=== PATIENT | female | born 1975 | race Hispanic/Latino ===

== ENCOUNTER 2025-01-27 07:59 | Emergency (ER) | payer OTHER ==
[~2025-01-27] VITALS: Ht 152.4 cm; Wt 93.9 kg
[2025-01-27 08:10] VITALS: TEMP 97.7
[2025-01-27] MEDS: SODIUM CHLORIDE 0.9% 1000ML 1,000 ML IV STA (08:33)
[2025-01-27] MEDS: ONDANSETRON HCL INJ 2MG/ML 2ML 2 MG/ML VIAL IV STA (08:33)
[2025-01-27 08:44] LABS: BASOPHILS % 0.7 % (0.0-1.0); EOSINOPHILS % 1.4 % (0.0-6.0); LYMPHOCYTES % 38.3 % (18.0-39.1); MONOCYTES % 6.3 % (4.4-11.3); NEUTROPHILS % 53.0 % (38.7-80.0); RED CELL DISTRIBUTION WIDTH 13.3 % (11.7-14.4)
[2025-01-27 08:58] LABS: AMPHETAMINES SCREEN,URINE POSITIVE (NEGATIVE); CANNABINOIDS SCREEN,URINE NEGATIVE (NEGATIVE); COCAINE SCREEN,URINE NEGATIVE (NEGATIVE); METHADONE SCREEN, URINE NEGATIVE (NEGATIVE); OPIATES SCREEN,URINE NEGATIVE (NEGATIVE)
[2025-01-27 09:10] LABS: EST GLOMERULAR FILTRATION RATE 84.0 ML/MIN (>=60)
[2025-01-27 09:11] LABS: CORONAVIRUS COVID-19 AG NEGATIVE (NEGATIVE)
[2025-01-27 09:14] LABS: EPITHELIAL CELLS,URINE FEW /LPF; LEUKOCYTE ESTERASE ,URINE NEGATIVE (NEGATIVE); PREGNANCY TEST, URINE NEGATIVE (NEGATIVE); PROTEIN,URINE DIPSTICK NEGATIVE (NEGATIVE); URINE UROBILINOGEN 0.2 mg/dL (0.2 - 1)
[2025-01-27] MEDS ORDERED: IOPAMIDOL 370 MG/ML 100 ML INFUS..BTL INJ ONE (09:16)
[2025-01-27] MEDS ORDERED: ONDANSETRON ODT4 MG PO (10:23)
[2025-01-27] MEDS ORDERED: PEPCID20 MG PO (10:23)
[2025-01-27 10:35] VITALS: PULSE 55; RESP 17
[2025-01-27] MEDS: LIDOCAINE VISC 2% SOLN 15 ML UDC PO STA (10:35)
[2025-01-27] MEDS: BELLADONNA ALK/PHENOBARBITAL 5 ML UDC PO ONE (10:35)
[2025-01-27] MEDS: MAGNESIUM/ALUMINUM/SIMETHICONE 30 ML UDC PO STA (10:35)
[2025-01-27 10:45] VITALS: BP 112/74; RESP 17; O2SAT 100
== END 2025-01-27 10:35 | disposition home or self-care (01) ==
LOC: ER 08:22
DX: R10.33 Periumbilical pain (principal); R11.2 Nausea with vomiting, unspecified; R19.7 Diarrhea, unspecified; I10 Essential (primary) hypertension; F90.9 Attention-deficit hyperactivity disorder, unspecified type
CPT/HCPCS: 36415; 74177; 80053; 80307; 80320; 81001; 81025; 83690; 85025; 87426; 99284; J2405; J7030; Q9967

== ENCOUNTER → 2025-02-10 | Day surgery (SDC) | payer OTHER ==
[~2025-02-10] MED LIST: ADDERALL 10 MG10 MG PO; BENICAR20 MG PO; FENTANYL CITRATE/PF 100MCG/2 ML INJ ONE; HYOSCYAMINE SULFATE 0.5 MG/ML INJ ONE; LIDOCAINE HCL 2% LOCAL INJ 5 ML SDV VIAL INJ ONE; METOCLOPRAMIDE HCL 10 MG/2ML VIAL ONE; ONDANSETRON ODT4 MG PO; PEPCID20 MG PO; PHENYLEPHRINE HCL 1% 10 MG/ML VIAL ONE; PROPOFOL IV EMULSION 10 MG/ML 20 ML VIAL ONE; XANAX1 MG PO
[2025-02-10] MEDS: LACTATED RINGER'S 1,000 ML ONE (13:46)
[2025-02-10 16:57] VITALS: TEMP 98.1
[2025-02-10 17:25] VITALS: BP 110/76; PULSE 75; RESP 16; O2SAT 98
== END | disposition home or self-care (01) ==
LOC: OR 16:19
PROVIDERS: ATTEND Internal Medicine Gastroenterology
DX: K52.89 Other specified noninfective gastroenteritis and colitis (principal); K29.70 Gastritis, unspecified, without bleeding; K29.80 Duodenitis without bleeding; K20.90 Esophagitis, unspecified without bleeding; K31.89 Other diseases of stomach and duodenum; K21.9 Gastro-esophageal reflux disease without esophagitis; K64.8 Other hemorrhoids; I10 Essential (primary) hypertension; Z71.89 Other specified counseling; F90.9 Attention-deficit hyperactivity disorder, unspecified type; F42.9 Obsessive-compulsive disorder, unspecified; F41.9 Anxiety disorder, unspecified; Z01.810 Encounter for preprocedural cardiovascular examination; Z79.899 Other long term (current) drug therapy; Z68.33 Body mass index [BMI] 33.0-33.9, adult; Z71.3 Dietary counseling and surveillance; Z86.19 Personal history of other infectious and parasitic diseases
CPT/HCPCS: 43239; 45380; 81025; 93005; J1980; J2003; J2371; J2470; J2704; J2765; J3010; J7121